=== PATIENT | male | born 1960 | race Caucasian/White ===

== ENCOUNTER 2018-02-14 08:24 | Outpatient (REF) | payer MEDICAID, SELFPAY ==
[2018-02-14 21:09] LABS: Anion Gap 7.7 mmol/L (3-11); BUN 12 mg/dL (7-18); CO2 27.3 mmol/L (21.0-32.0); CREATININE 1.02 mg/dL (0.70-1.30); Calcium 9.1 mg/dL (8.5-10.1); Chloride 105 mmol/L (98-107); Cholesterol 181 mg/dL (50-200); Glucose 93 mg/dL (70-100); HDL Cholesterol 40 mg/dL (40-60); LDL CHOLESTEROL 125 mg/dL (<100); Potassium 4.7 mmol/L (3.5-5.1); Sodium 140 mmol/L (136-145); Triglyceride 92 mg/dL (30-150)
== END 2018-02-14 08:25 ==
LOC: NCHCN 08:24
PROVIDERS: PCP Physician Assistant; Visit Provider Physician Assistant Medical
DX: E78.5 Hyperlipidemia, unspecified (principal); I10 Essential (primary) hypertension; Z00.00 Encounter for general adult medical examination without abnormal findings
CPT/HCPCS: 80048; 80061; 83721

== ENCOUNTER 2018-04-06 19:38 | Outpatient (REF) | payer MEDICAID, SELFPAY ==
[2018-04-06 20:42] LABS: HCT 42.7 % (40.0-50.0); HGB 13.9 g/dL (13.5-17.5); Mean Corp. HGB Concentration 32.6 g/dL (32.0-36.0); Mean Corpuscular Hemoglobin 29.3 pg (27.0-33.0); Mean Corpuscular Volume 89.9 fL (80-95); Mean Platelet Volume 9.2 fL (8.0-11.0); Platelet Count 346 x1000/uL (130-400); RBC 4.75 m/cumm (4.50-6.00); RBC Distribution Width 13.4 % (11.8-14.1); White Blood Cell Count 9.35 k/cumm (4.4-10.8)
[2018-04-06 21:04] LABS: ALT 24 U/L (12-78); AST 16 U/L (15-37); Albumin 3.9 g/dL (3.4-5.0); Alkaline Phosphatase 84 U/L (46-116); Anion Gap 9.5 mmol/L (3-11); BUN 13 mg/dL (7-18); Bilirubin, Total 0.4 mg/dL (0.2-1.0); CO2 27.5 mmol/L (21.0-32.0); Calcium 9.3 mg/dL (8.5-10.1); Chloride 106 mmol/L (98-107); Glucose 110 mg/dL (70-100); Potassium 4.6 mmol/L (3.5-5.1); Sodium 143 mmol/L (136-145); Total Protein 6.6 g/dL (6.4-8.2)
[2018-04-06 21:05] LABS: Troponin I < 0.02 ng/mL (0.00-0.06)
== END 2018-04-06 19:58 ==
LOC: NCHCN 19:38
PROVIDERS: PCP Physician Assistant; Visit Provider Nurse Practitioner Family
DX: R55 Syncope and collapse (principal)
CPT/HCPCS: 80053; 85027; 84443; 84484

== ENCOUNTER 2019-03-22 10:13 | Outpatient (REF) | payer MEDICARE, MEDICAID, SELFPAY ==
[2019-03-22 19:37] LABS: HCT 45.6 % (40.0-50.0); HGB 15.3 g/dL (13.5-17.5); Mean Corp. HGB Concentration 33.6 g/dL (32.0-36.0); Mean Corpuscular Hemoglobin 29.4 pg (27.0-33.0); Mean Corpuscular Volume 87.7 fL (80-95); Mean Platelet Volume 8.6 fL (8.0-11.0); Platelet Count 401 x1000/uL (130-400); RBC Distribution Width 12.8 % (11.8-14.1); White Blood Cell Count 6.44 k/cumm (4.4-10.8)
[2019-03-22 20:00] LABS: Troponin I < 0.05 ng/mL (0.00-0.06)
[2019-03-25 11:21] LABS: Lyme Ab w Rflx to Lyme Confirm Negative
[2019-03-26 20:09] LABS: Anaplasma phagocytophilum Negative (Negative); B. miyamotoi PCR Negative (Negative); Babesia divergens/MO-1 Negative (Negative); Babesia duncani Negative (Negative); Babesia microti Negative (Negative); Ehrlichia chaffeensis Negative (Negative); Ehrlichia ewingii/canis Negative (Negative); Ehrlichia muris eauclairensis Negative (Negative)
== END 2019-03-22 10:33 ==
LOC: NCHCN 10:13
PROVIDERS: PCP Physician Assistant; Visit Provider Nurse Practitioner Family
DX: R07.89 Other chest pain (principal); R10.13 Epigastric pain; W57.XXXA Bitten or stung by nonvenomous insect and other nonvenomous arthropods, initial encounter; T14.8XXA Other injury of unspecified body region, initial encounter
CPT/HCPCS: 85027; 87798; 84484; 86618

== ENCOUNTER 2020-06-11 03:32 | Outpatient (CLI) | payer MEDICARE, MEDICAID, SELFPAY ==
[2020-06-11 10:42] LABS: ALT 37 U/L (16-63); AST 22 U/L (15-37); Alkaline Phosphatase 74 U/L (46-116); BUN 22 mg/dL (7-18); Bilirubin, Total 0.4 mg/dL (0.2-1.0); CREATININE 1.01 mg/dL (0.70-1.30); Calcium 8.9 mg/dL (8.5-10.1); Calculated LDL 139 mg/dL (<100); Chloride 105 mmol/L (98-107); Cholesterol 202 mg/dL (<200); Glucose 91 mg/dL (74-106); HDL Cholesterol 44 mg/dL (40-60); Potassium 4.9 mmol/L (3.5-5.1); Sodium 139 mmol/L (136-145); Total Protein 6.7 g/dL (6.4-8.2); Triglyceride 99 mg/dL (<150)
== END 2020-06-11 03:52 ==
PROVIDERS: PCP Student in an Organized Health Care Education/Training Program; Visit Provider Student in an Organized Health Care Education/Training Program
DX: I10 Essential (primary) hypertension (principal)
CPT/HCPCS: 36415; 80053; 80061

== ENCOUNTER 2020-07-06 03:31 | Outpatient (CLI) | payer MEDICARE, MEDICAID, SELFPAY ==
[2020-07-07 19:19] LABS: COVID-19 RT-PCR UVMMC Result Negative (Negative)
== END 2020-07-06 03:51 ==
PROVIDERS: PCP Student in an Organized Health Care Education/Training Program; Visit Provider Student in an Organized Health Care Education/Training Program
DX: Z11.59 Encounter for screening for other viral diseases (principal)
CPT/HCPCS: U0003

== ENCOUNTER 2021-01-12 04:04 | Outpatient (CLI) | payer MEDICARE, MEDICAID, SELFPAY ==
[2021-01-12 10:03] LABS: ALT 25 U/L (16-63); AST 18 U/L (15-37); Albumin 3.8 g/dL (3.4-5.0); Alkaline Phosphatase 68 U/L (46-116); Anion Gap 7.6 mmol/L (3-11); BUN 11 mg/dL (7-18); Bilirubin, Total 0.6 mg/dL (0.2-1.0); CO2 29.4 mmol/L (21.0-32.0); CREATININE 0.8 mg/dL (0.70-1.30); Calculated LDL 122 mg/dL (<100); Chloride 106 mmol/L (98-107); Cholesterol 179 mg/dL (<200); Glucose 82 mg/dL (74-106); HDL Cholesterol 47 mg/dL (40-60); Sodium 143 mmol/L (136-145); TSH (W/Ref FT4) 0.33 uIU/mL (0.36-3.74); Total Protein 6.3 g/dL (6.4-8.2); Triglyceride 51 mg/dL (<150)
[2021-01-12 10:24] LABS: FREE T4 1.17 ng/dL (0.76-1.46)
[2021-01-16 13:48] LABS: Testosterone, Free 9.12 ng/dL (3.67-13.9); Testosterone, Total 380 ng/dL (240-950)
== END 2021-01-12 04:05 | disposition home or self-care (01) ==
LOC: LBO 04:04
PROVIDERS: PCP Student in an Organized Health Care Education/Training Program; Visit Provider Student in an Organized Health Care Education/Training Program
DX: I10 Essential (primary) hypertension (principal); R63.4 Abnormal weight loss; K76.0 Fatty (change of) liver, not elsewhere classified; E46 Unspecified protein-calorie malnutrition; M62.50 Muscle wasting and atrophy, not elsewhere classified, unspecified site; R53.83 Other fatigue; E05.90 Thyrotoxicosis, unspecified without thyrotoxic crisis or storm
CPT/HCPCS: 36415; 80053; 80061; 84402; 84403; 84439; 84443

== ENCOUNTER 2021-01-21 03:36 | Outpatient (CLI) | payer MEDICARE, MEDICAID, SELFPAY ==
[2021-01-27 16:15] LABS: Testosterone, Free 9.06 ng/dL (3.67-13.9); Testosterone, Total 477 ng/dL (240-950)
== END 2021-01-21 03:37 | disposition home or self-care (01) ==
LOC: LBO 03:36
PROVIDERS: PCP Student in an Organized Health Care Education/Training Program; Visit Provider Student in an Organized Health Care Education/Training Program
DX: R63.4 Abnormal weight loss (principal); R53.83 Other fatigue; M62.58 Muscle wasting and atrophy, not elsewhere classified, other site
CPT/HCPCS: 36415; 84402; 84403

== ENCOUNTER 2021-10-20 03:05 | Outpatient (CLI) | payer MEDICARE, MEDICAID, SELFPAY ==
[2021-10-20 09:41] LABS: HCT 43.7 % (40.0-50.0); HGB 14.1 g/dL (13.5-17.5); MCH 29.7 pg (27.0-33.0); MCHC 32.3 % (32.0-36.0); Platelet Count 251 10^3/uL (130-400); RBC 4.75 10^6/uL (4.36-5.78); RDW 12.7 % (11.8-14.1); RDW-SD 43.4 fL; WBC 5.42 10^3/uL (4.4-10.8)
[2021-10-20 10:35] LABS: ALT 24 U/L (16-63); AST 16 U/L (15-37); Alkaline Phosphatase 67 U/L (46-116); Anion Gap 5.3 mmol/L (3-11); BUN 20 mg/dL (7-18); Bilirubin, Total 0.4 mg/dL (0.2-1.0); CO2 28.7 mmol/L (21.0-32.0); CREATININE 0.9 mg/dL (0.70-1.30); Calcium 9.1 mg/dL (8.5-10.1); Chloride 106 mmol/L (98-107); Glucose 94 mg/dL (74-106); Potassium 4.8 mmol/L (3.5-5.1); Sodium 140 mmol/L (136-145); TSH (W/Ref FT4) 0.53 uIU/mL (0.36-3.74); Total Protein 6.5 g/dL (6.4-8.2)
[2021-10-20 10:55] LABS: Calculated LDL 114 mg/dL (<100); Cholesterol 183 mg/dL (<200); HDL Cholesterol 56 mg/dL (40-60); Triglyceride 65 mg/dL (<150)
== END 2021-10-20 03:06 | disposition home or self-care (01) ==
LOC: LBO 03:05
PROVIDERS: PCP Student in an Organized Health Care Education/Training Program; Visit Provider Student in an Organized Health Care Education/Training Program
DX: I10 Essential (primary) hypertension (principal); Z86.2 Personal history of diseases of the blood and blood-forming organs and certain disorders involving the immune mechanism; Z98.890 Other specified postprocedural states
CPT/HCPCS: 36415; 80053; 80061; 85027; 84443

== ENCOUNTER → 2022-02-09 09:11 | Outpatient (BNVA) | payer MEDICARE, MEDICAID, SELFPAY | PROVIDERS: PCP Student in an Organized Health Care Education/Training Program; Referring Provider Student in an Organized Health Care Education/Training Program; Visit Provider Surgery | DX: L82.1 Other seborrheic keratosis (principal) | CPT/HCPCS: 11406; 99203 ==

== ENCOUNTER 2022-02-09 10:46 | Outpatient (REF) | payer MEDICARE, MEDICAID, SELFPAY ==
--- NOTE | 2022-02-09 09:55 | SKI_PTH ---
PATIENT: Edward Maldonado LOC: [facility] U#:[id number] AGE/SX: 61/M ROOM: RE02/09/[address]: Lawrence Miramontes MD : 1960 BED: DIS: 02/09/2022 SPEC #: [id number] RECD: 02/09/22 12:22 STATUS: WILL REFelipe #: [id number] SHAHIDA: 02/09/22 09:[address]: Lawrence Miramontes DEPT: Surgical Specimen RECD BY: Ting Damon ENTERED: 02/09/22 12:23 SP TYPE: JOHNATHAN GIORDANO DR: Loretta Truong DO Tissues: 1 - SKIN BIOPSY(SHAVE/PUNCH) Procedures: SKIN LEVEL 4 Comments: [id number]
--- OUTSIDE RECORDS SUMMARY | 2022-02-09 10:52 | XMS_ITS | Clinical Summary ---
:1960 Demographics Home Phone Preferred Language Unknown Marital Status Unknown Moravian Affiliation Unknown Race Unknown Ethnic Group Unknown Author Organization [facility] Address [address] [place] [id number] Care Team Providers Name Role Phone Unavailable Primary Care Provider Unavailable Social History Tobacco Use Types Packs/Day Years Used Date Never Assessed Sex Assigned at Date Recorded Not on file Plan of Treatment Not on file
--- OUTSIDE RECORDS SUMMARY | 2022-02-09 10:52 | XMS_ITS | Encounter Summary ---
:1960 Demographics Home Phone Preferred Language Unknown Marital Status Unknown Pentecostalism Affiliation Unknown Race Unknown Ethnic Group Unknown Author Organization [facility] Address [address] [place] [address] Care Team Providers Name Role Phone Unavailable Primary Care Provider Unavailable Encounter Details Date Type Department Care Team Description 07/06/2020 Lab Requisition [facility] Outr Resulting Lab, Pathology & Laboratory Provider [facility] [address] [place] [address] Social History Tobacco Use Types Packs/Day Years Used Date Never Assessed Sex Assigned at Date Recorded Not on file documented as of this encounter Plan of Treatment Not on filedocumented as of this encounter Procedures Procedure Name Priority Date/Time Associated Diagnosis Comme nts COVID-19 TEST [facility] Today 07/06/2020 9:08 EST LAB PCR COVID-19 TESTING Routine 07/06/2020 9:08 EST Resu lts for this procedure are i n the results section. documented in this encounter Results COVID-19 TEST [facility] LAB PCR (07/06/2020 9:08 EST) Specimen Swab - Entire nasopharynx (body structur e) Performing Organization Address City/State/ZIP Code Phon e Number [facility] [address] [place] [address] SERVICES COVID-19 TESTING (07/06/2020 9:08 EST) COVID-19 rt-PCR Negative Negative [facility] Result Comment: [facility] Negative results do not prec lude 2019-nCoV infection and should not be used as the sole basis for treatment or other patient management decisions. Negative results must be combined with clinical observa SERVICES tions, patient history, and epidemiological informatio n. This test was developed and its performance characteristics determined by [facility]. It has not been cleared or approved by the [place] Food and Drug Administration. FDA does not require this test to go through premarket FDA review. This t est is used for clinical purposes. It should not be regarded as investigational or for research. This laboratory is certified under the Clinical Laboratory Improvement Amendm ents (CLIA) as qualified to perform high complexity clinical laboratory testing. This test is based on the CD C COVID-19 Emergency Use Authorization (EUA) assay, with minor modification as defined by the FDA Performed on the Steps[employer] 7 Flex . Performing Lab [id number] Specimen Swab Performing Organization Address City/State/ZIP Code Phon e Number [facility] [address] [place] [phone] SERVICES documented in this encounter Visit Diagnoses Not on filedocumented in this encounter
== END 2022-02-09 10:47 | disposition home or self-care (01) ==
LOC: LBN 10:46
PROVIDERS: PCP Student in an Organized Health Care Education/Training Program; Visit Provider Surgery
DX: L98.8 Other specified disorders of the skin and subcutaneous tissue (principal)
CPT/HCPCS: 88305

== ENCOUNTER → 2022-02-21 09:23 | Outpatient (BNVA) | payer MEDICARE, MEDICAID, SELFPAY | PROVIDERS: PCP Student in an Organized Health Care Education/Training Program; Referring Provider Student in an Organized Health Care Education/Training Program; Visit Provider Surgery | DX: Z48.817 Encounter for surgical aftercare following surgery on the skin and subcutaneous tissue (principal) ==

== ENCOUNTER → 2022-03-31 02:50 | Outpatient (CLI) | payer MEDICARE, MEDICAID, SELFPAY ==
--- NOTE | 2022-03-31 07:45 | DI.US_ITS ---
Exam(s) US THYROID EXAM: US THYROID CLINICAL HISTORY: evaluate left nodule (Hx small/stable, 2011),f/u lt thyroid nodule,h/o. TECHNIQUE: Ultrasound thyroid performed using standard protocol. COMPARISON: US Thyroid from 12/17/2010 FINDINGS: ISTHMUS: 5 mm RIGHT LOBE: Size: 5.5 x 2.2 x 1.7 cm Echogenicity: Normal. Vascularity: Normal. Nodules: None. LEFT LOBE: Size: 4.8 x 1.6 x 1.3 cm Echogenicity: Normal. Vascularity: Normal. Nodules: 6 x 6 x 3 millimeter circumscribed ovoid nodule upper pole. Its characteristics are difficul t to evaluate due to small size. It may be spongiform versus solid and hypoechoic. At most this corre sponds to 3 points, ti-rads 3. This shows mild increase in size from 2010. OTHER FINDINGS: None. IMPRESSION: 6 millimeter thyroid nodule, ti-rads 3, no follow-up indicated. DATA REPOSITORY:
--- NOTE | 2022-03-31 07:45 | DI.US_ITS ---
APPROVED REPORT EXAM: Comprehensive 2D, Doppler, and color-flow Echocardiogram Patient Location: Out-Patient Machine Stripper: Marisol Gutiérrez RDCS (AE) Indications: Evaluate function, HT, SOB Other Information Study Quality: Fair. Technically limited study due to body habitus parasternal views.. Conclusion Technically limited study The left ventricle appears normal in size wall thickness and systolic function The right ventricle appears normal in size and systolic function Both atria are normal in size There is no structural or hemodynamically significant valvular disease identified Wall motion Left Ventricle Technically limited parasternal views. Regional wall motion is normal. There is no ventricular septal defect visualized. LVEF is 59%. Right Ventricle The right ventricle is normal size. The right ventricular systolic function is normal. Atria The left atrium size is normal. The right atrium size is normal. The interatrial septum is intact wit h no evidence for an atrial septal defect. Aortic Valve The aortic valve is normal in structure. Aortic valve is trileaflet. Subcostal imaging of aortic valv e There is no aortic valvular stenosis. No aortic regurgitation is present. Mitral Valve The mitral valve is normal in structure. No evidence of mitral valve stenosis. Trace mitral regurgita tion. Tricuspid Valve The tricuspid valve is normal in structure. There is no tricuspid valve stenosis. Trace tricuspid reg urgitation. Pulmonic Valve The pulmonary valve is normal in structure. There is no pulmonic valvular stenosis. There is no pulmo micheline valvular regurgitation. Great Vessels Aortic root is not well visualized. Ascending aorta is not well visualized. Aortic arch is not well v isualized. IVC is normal in size and collapses >50% with inspiration. Pericardium There is no pericardial effusion. 2D Dimensions RA Area A4C 11.57 cm2 LV Vol A2C d MOD 99.1 mL RA Vol/ BSA A4C s A-L 13.8 mL/m2 LV Vol A4C d MOD 102.2 mL LVEF (Day's) 59.65 % M: 52 - 72 LA vol/ BSA A2C s A-L 21.1 mL/m2 LV Volume 75.10 mL M: 62 - 150 LA vol/ BSA A4C s A-L 23.8 mL/m2 LV Volume Index 36.63 mL/m2 M: 34 - 74 LA Vol/ BSA Biplane s A-L 22.8 mL/m2 LV Vol Biplane MOD 101.0 mL LA Area A4C s MOD 17.27 cm2 LA Area A2C s MOD 15.99 cm2 LV EF A4C MOD 58.0 % LV EF A2C MOD 62.7 % LV EF Biplane MOD 59.6 % SV 60.27 mL SV Index 29.31 mL/m2 M-Mode TAPSE 3.15 cm (M/F) >1.7 LV Diastology MV E' medial 0.111 (>0.07 m/s) E/A Ratio 1.0 LV E/e MED 7.90 (<14) MV E Vmax 0.88 (0.4-1.3 m/s) MV E' lateral 0.147 (>0.1 m/s) MV A Vmax 0.85 (0.4-1.3 m/s) LV E/e LAT 6.00 (<14) MV E/A Ratio 1.02 MV E/E' medial 7.95 MV E/E' lateral 6.03 Aortic Valve LVOT Vmax 1.16 m/s LVOT Mean Harvey. 0.69 m/s LVOT Peak Grad 5.4 mmHg LVOT Mean Grad 2.4 mmHg LVOT VTI 0.247 m AoV Vmax 1.45 m/s Velocity Ratio 0.80 AoV Mean Harvey. 0.91 m/s AoV Peak Grad 8.4 mmHg AoV Mean Grad 3.9 mmHg AoV VTI 0.282 m Mitral Valve MV DT 177 (160-240 msec) MV PHT 51 msec MV Area PHT 4.29 cm2 MV VTI 0.306 m Pulmonary Valve PV Vmax 1.15 (0.5-1.5 m/s) RVOT Peak Gr. 1.80 mmHg PV Peak Grad 5.3 mmHg RVOT Mean Gr. 0.85 mmHg PV Mean Grad 2.9 mmHg RVOT VTI 0.149 m PV VTI 0.254 m RVOT Vmax 0.67 m/s Tricuspid Valve TR Peak Grad 29.4 mmHg TR Vmax 2.71 m/s RA Pressure 3.00 mmHg RVSP (TR) 32.4 mmHg
== END ==
PROVIDERS: PCP Student in an Organized Health Care Education/Training Program; Visit Provider Student in an Organized Health Care Education/Training Program
DX: E04.1 Nontoxic single thyroid nodule (principal); Z86.39 Personal history of other endocrine, nutritional and metabolic disease; I10 Essential (primary) hypertension; R06.02 Shortness of breath
CPT/HCPCS: 93306; 76536

== ENCOUNTER 2022-12-29 02:04 | Outpatient (CLI) | payer MEDICARE, MEDICAID, SELFPAY ==
[2022-12-29 08:48] LABS: ALT 32 U/L (16-63); AST 21 U/L (15-37); Albumin 4.1 g/dL (3.4-5.0); Alkaline Phosphatase 62 U/L (46-116); Anion Gap 7.2 mmol/L (3-11); BUN 29 mg/dL (7-18); Bilirubin, Total 0.4 mg/dL (0.2-1.0); CO2 28.8 mmol/L (21.0-32.0); Calcium 9.1 mg/dL (8.5-10.1); Calculated LDL 136 mg/dL (<100); Chloride 106 mmol/L (98-107); Cholesterol 215 mg/dL (<200); Estimated GFR 84.05 (mL/min/1.73m2); Glucose 92 mg/dL (74-106); HDL Cholesterol 71 mg/dL (40-60); Potassium 4.9 mmol/L (3.5-5.1); Sodium 142 mmol/L (136-145); TSH (W/Ref FT4) 0.37 uIU/mL (0.36-3.74); Total Protein 7.2 g/dL (6.4-8.2); Triglyceride 44 mg/dL (<150)
== END 2022-12-29 02:05 | disposition home or self-care (01) ==
LOC: LBO 02:05
PROVIDERS: PCP Student in an Organized Health Care Education/Training Program; Visit Provider Student in an Organized Health Care Education/Training Program
DX: I10 Essential (primary) hypertension (principal); E04.1 Nontoxic single thyroid nodule; K13.0 Diseases of lips; K76.89 Other specified diseases of liver
CPT/HCPCS: 36415; 80053; 80061; 84443

== ENCOUNTER 2023-01-16 03:07 | Outpatient (CLI) | payer MEDICARE, MEDICAID, SELFPAY ==
[2023-01-16] MEDS: Albuterol HFA 18 GM 200 PUFF INH IH (09:33)
[2023-01-16] MEDS: Inhaler, Assist Device 1 EACH MC (09:34)
--- NOTE | 2023-01-17 13:40 | W.PFT ---
Date of service: 01/16/23 Time of Service: 08:00 Pulmonary Function Test Result Indications: Dyspnea Interpretation Spirometry: There is no airflow limitation. No bronchodilator response. Lung Volumes: Normal lung volumes Diffusion Capacity: Normal diffusion Airway Pressure: Normal airways resistance Impression Normal pulmonary function testing Clinical Correlation therefore is recommended.
== END 2023-01-16 03:08 | disposition home or self-care (01) ==
LOC: RT 03:07
PROVIDERS: PCP Student in an Organized Health Care Education/Training Program; Visit Provider Student in an Organized Health Care Education/Training Program
DX: E87.8 Other disorders of electrolyte and fluid balance, not elsewhere classified (principal); R63.4 Abnormal weight loss
CPT/HCPCS: 94060; 94726; 94729

== ENCOUNTER 2023-01-16 16:35 | Outpatient (CLI) | payer MEDICARE, MEDICAID, SELFPAY ==
[2023-01-16 08:07] LABS: Abs Immature Grans 0.02 10^3/uL (0.0-0.06); Absolute Basophil Count 0.04 10^3/uL (0.0-0.2); Absolute Lymphocyte Count 1.68 10^3/uL (1.2-3.4); Absolute Monocyte Count 0.65 10^3/uL (0.1-0.8); Absolute Neutrophil Count 3.84 10^3/uL (1.2-6.7); Basophils % 0.6; Eosinophils % 1.6; HCT 44.4 % (40.0-50.0); HGB 14.8 g/dL (13.5-17.5); Immature Grans % 0.3; Lymphocytes % 26.5; MCH 29.7 pg (27.0-33.0); MCHC 33.3 % (32.0-36.0); MCV 89 fL (80-95); MPV 8.2 fL (8.0-11.0); Monocytes % 10.3; Neutrophils % 60.7; Platelet Count 293 10^3/uL (130-400); RBC 4.99 10^6/uL (4.36-5.78); RDW 12.6 % (11.8-14.1); RDW-SD 41.1 fL; WBC 6.33 10^3/uL (4.4-10.8)
[2023-01-16 08:58] LABS: ALT 25 U/L (16-63); AST 21 U/L (15-37); Albumin 4.3 g/dL (3.4-5.0); Alkaline Phosphatase 64 U/L (46-116); Anion Gap 7.6 mmol/L (3-11); BUN 18 mg/dL (7-18); Bilirubin, Direct 0.1 mg/dL (0.0-0.2); Bilirubin, Total 0.6 mg/dL (0.2-1.0); CO2 28.4 mmol/L (21.0-32.0); CREATININE 0.9 mg/dL (0.70-1.30); Calcium 9.4 mg/dL (8.5-10.1); Chloride 105 mmol/L (98-107); Estimated GFR 95.37 (mL/min/1.73m2); Glucose 99 mg/dL (74-106); Magnesium 1.9 mg/dL (1.8-2.4); Potassium 4.3 mmol/L (3.5-5.1); Sodium 141 mmol/L (136-145); TSH (W/Ref FT4) 0.46 uIU/mL (0.36-3.74); Total Protein 7.2 g/dL (6.4-8.2)
== END 2023-01-16 16:36 | disposition home or self-care (01) ==
LOC: LBO 16:39
PROVIDERS: PCP Student in an Organized Health Care Education/Training Program; Visit Provider Student in an Organized Health Care Education/Training Program
DX: I10 Essential (primary) hypertension (principal); R63.4 Abnormal weight loss; K76.9 Liver disease, unspecified; E46 Unspecified protein-calorie malnutrition
CPT/HCPCS: 36415; 80048; 80076; 94060; 94726; 94729; 83735; 84443; 85025

== ENCOUNTER 2023-01-20 00:39 | Outpatient (CLI) | payer MEDICARE, MEDICAID, SELFPAY ==
--- NOTE | 2023-01-20 10:06 | DI.RAD_ITS ---
Exam(s) XR CHEST 2V PA LATERAL EXAM: XR CHEST 2V PA LATERAL CLINICAL HISTORY: Resp Abn; ? COPD, screen for nod (failed ct),wt loss,r63.4. TECHNIQUE: 2D digital imaging was performed. COMPARISON: No exams were available for comparison FINDINGS: 2 views: Heart size is normal. The mediastinum is not widened. Lungs are clear. No infiltrates nor pleural effusions. Mild tenting of the left hemidiaphragm. IMPRESSION: No acute pulmonary findings. DATA REPOSITORY: RADIATION DOSE DELIVERED:
== END 2023-01-20 00:59 ==
LOC: DI 00:39
PROVIDERS: PCP Student in an Organized Health Care Education/Training Program; Visit Provider Student in an Organized Health Care Education/Training Program
DX: E46 Unspecified protein-calorie malnutrition (principal); R63.4 Abnormal weight loss; Z91.89 Other specified personal risk factors, not elsewhere classified
CPT/HCPCS: 71046

== ENCOUNTER 2023-10-26 04:56 | Outpatient (CLI) | payer MEDICARE, MEDICAID, SELFPAY ==
[2023-10-26 08:55] LABS: ALT 32 U/L (16-63); AST 19 U/L (15-37); Alkaline Phosphatase 62 U/L (46-116); Anion Gap 8.7 mmol/L (3-11); BUN 20 mg/dL (7-18); Bilirubin, Total 0.5 mg/dL (0.2-1.0); CO2 27.3 mmol/L (21.0-32.0); CREATININE 0.9 mg/dL (0.70-1.30); Calcium 9.1 mg/dL (8.5-10.1); Calculated LDL 135 mg/dL (<100); Chloride 108 mmol/L (98-107); Cholesterol 210 mg/dL (<200); Estimated GFR 95.37 (mL/min/1.73m2); Glucose 92 mg/dL (74-106); HDL Cholesterol 66 mg/dL (40-60); Potassium 4.9 mmol/L (3.5-5.1); Sodium 144 mmol/L (136-145); Total Protein 6.8 g/dL (6.4-8.2); Triglyceride 48 mg/dL (<150)
[2023-10-26 09:14] LABS: Vitamin D 25 Total 40.4 ng/mL (30-100)
== END 2023-10-26 04:57 | disposition home or self-care (01) ==
LOC: LBO 04:56
PROVIDERS: PCP Student in an Organized Health Care Education/Training Program; Visit Provider Student in an Organized Health Care Education/Training Program
DX: I10 Essential (primary) hypertension (principal); J44.9 Chronic obstructive pulmonary disease, unspecified; Z86.39 Personal history of other endocrine, nutritional and metabolic disease; K76.9 Liver disease, unspecified
CPT/HCPCS: 36415; 80053; 80061; 82306

== ENCOUNTER 2024-06-14 00:29 | Outpatient (CLI) | payer MEDICARE, MEDICAID, SELFPAY ==
--- NOTE | 2024-06-14 07:15 | DI.RAD_ITS ---
Exam(s) XR CHEST 2V PA LATERAL EXAM: XR CHEST 2V PA LATERAL CLINICAL HISTORY: evaluate lungs 2' cough Hx COPD,SOB,R05.9,R06.02 TECHNIQUE: 2D digital imaging was performed. Two views. COMPARISON: CR XR CHEST 2V PA LATERAL from 01/20/2023 FINDINGS: HEART: Normal size. Aorta: Not dilated. PULMONARY VASCULATURE: Normal. MEDIASTINUM: Unremarkable. LUNGS: Clear. PLEURAL SPACE: No pleural effusion or pneumothorax. BONE:Osteophytes in the thoracic spine. No compression fractures. SOFT TISSUES: Unremarkable. IMPRESSION: No acute abnormality. DATA REPOSITORY: RADIATION DOSE DELIVERED:
--- NOTE | 2024-06-14 07:15 | DI.RAD_ITS ---
Exam(s) XR HIP PELVIS ADULT BL EXAM: XR HIP PELVIS ADULT BL CLINICAL HISTORY: b/l hip pain,M25.551,M25.552,? BURSA,? JOINT SPACING. TECHNIQUE: 2D digital imaging was performed of the pelvis and bilateral hips. Four images were obta ined. AP pelvis and lateral views of both hips were obtained. COMPARISON: CR LUMBAR SPINE AP, LAT from 05/17/2016 FINDINGS: BONES: No acute fracture is present. No bony destructive lesion is seen. JOINTS: No dislocation present. Moderate degenerative changes are seen in the lower visualized lumbar spine. The sacroiliac joints are well maintained. The hip joints are well maintained without signi ficant joint space narrowing. SOFT TISSUE: Normal. IMPRESSION: 1. Unremarkable radiographs of bilat hips. 2. Moderate degenerative changes seen in the lower lumbar spine. DATA REPOSITORY: RADIATION DOSE DELIVERED:
== END 2024-06-14 00:49 ==
LOC: DI 00:29
PROVIDERS: PCP Student in an Organized Health Care Education/Training Program; Visit Provider Student in an Organized Health Care Education/Training Program
DX: R05.9 Cough, unspecified (principal); I10 Essential (primary) hypertension; R53.83 Other fatigue; M25.551 Pain in right hip; M25.552 Pain in left hip
CPT/HCPCS: 73521; 71046

== ENCOUNTER 2024-08-23 00:49 | Outpatient (CLI) | payer MEDICARE, MEDICAID, SELFPAY ==
[2024-08-23 07:33] LABS: HGB 14.4 g/dL (13.5-17.5); MCH 29.4 pg (27.0-33.0); MCHC 32.7 % (32.0-36.0); MCV 90 fL (80-95); MPV 7.9 fL (8.0-11.0); Platelet Count 241 10^3/uL (130-400); RBC 4.89 10^6/uL (4.36-5.78); RDW 12.8 % (11.8-14.1); WBC 5.46 10^3/uL (4.4-10.8)
[2024-08-23 08:06] LABS: Anion Gap 8.1 mmol/L (3-11); BUN 21 mg/dL (7-18); CO2 28.9 mmol/L (21.0-32.0); Calcium 9.2 mg/dL (8.5-10.1); Calculated LDL 139 mg/dL (<100); Chloride 106 mmol/L (98-107); Cholesterol 220 mg/dL (<200); Estimated GFR 83.52 (mL/min/1.73m2); Glucose 98 mg/dL (74-106); HDL Cholesterol 72 mg/dL (40-60); Potassium 4.7 mmol/L (3.5-5.1); Sodium 143 mmol/L (136-145); Triglyceride 45 mg/dL (<150)
[2024-08-23 08:16] LABS: Iron 88 ug/dL (65-175); Total Iron Binding Capacity 322 ug/dL (250-450); Transferrin Sat 27 % (20-55)
[2024-08-23 18:13] LABS: PSA, Screening 1.3 ng/mL (<=4.5)
== END 2024-08-23 00:50 | disposition home or self-care (01) ==
LOC: LBO 00:49
PROVIDERS: Absent Provider Student in an Organized Health Care Education/Training Program; PCP Student in an Organized Health Care Education/Training Program; Referring Provider Student in an Organized Health Care Education/Training Program; Visit Provider Student in an Organized Health Care Education/Training Program
DX: I10 Essential (primary) hypertension (principal); R06.02 Shortness of breath; R53.83 Other fatigue; Z91.89 Other specified personal risk factors, not elsewhere classified; R63.4 Abnormal weight loss; K90.9 Intestinal malabsorption, unspecified; Z13.220 Encounter for screening for lipoid disorders; Z12.5 Encounter for screening for malignant neoplasm of prostate
CPT/HCPCS: 36415; 80048; 80061; 84153; 85027; 83540; 83550